=== PATIENT | male | born 1945 | race Caucasian/White ===

== ENCOUNTER 2024-06-07 07:52 | Emergency (ER) | payer MEDICARE, MEDICAID ==
[~2024-06-07] VITALS: Ht 172.7 cm; Wt 82.0 kg
[2024-06-07 07:54] VITALS: O2SAT 98
[2024-06-07 08:29] LABS: BASOPHILS % 0.7 % (0.0-2.0); DIFFERENTIAL COMMENT 0; EOSINOPHILS % 0.5 % (0.0-5.0); HEMATOCRIT. 30.5 % (42.0-52.0); HEMOGLOBIN. 9.8 g/dL (14.0-18.0); LYMPHOCYTES % 13.2 % (20.0-50.0); MEAN CORPUSCULAR HEMOGLOBIN 23.4 pg (28.0-32.0); MEAN CORPUSCULAR HGB CONC 32.1 g/dL (31.0-37.0); MEAN CORPUSCULAR VOLUME 72.9 fL (80.0-94.0); MEAN PLATELET VOLUME 9.1 fl (7.4-10.4); MONOCYTES % 4.5 % (2.0-8.0); NEUTROPHILS % 81.1 % (40.0-76.0); PLATELET 266 x1000/uL (130-400); RED BLOOD CELL COUNT 4.18 mill/uL (4.7-6.1); WHITE BLOOD COUNT 7.4 x1000/uL (4.5-11.0)
[2024-06-07 08:33] LABS: CHLORIDE 109 mEq/L (98-107); POTASSIUM 5.1 mEq/L (3.5-5.1); SODIUM 142 mEq/L (136-145)
[2024-06-07 08:34] LABS: CARBON DIOXIDE 22 mEq/L (21-32)
[2024-06-07 08:35] LABS: CALCIUM 9.6 mg/dL (8.7-10.4)
[2024-06-07 08:39] LABS: GLUCOSE 50 mg/dL (70-105); UREA NITROGEN BLOOD 29 mg/dL (9-23)
[2024-06-07 08:49] LABS: PROTHROMBIN TIME 11.4 sec (9.6-11.0)
[2024-06-07] MEDS: DEXTROSE 50% WATER 50ML SYRINGE IV ONE (08:50)
[2024-06-07 09:44] LABS: CLARITY URINE CLEAR (CLEAR); COLOR URINE YELLOW (YELLOW); GLUCOSE URINE 2+ (NEGATIVE); KETONES URINE NEGATIVE (NEGATIVE); LEUKOCYTE ESTERASE URINE NEGATIVE (NEGATIVE); NITRITE URINE NEGATIVE (NEGATIVE); OCCULT BLOOD URINE NEGATIVE (NEGATIVE); PH URINE 5.5 (4.5-8.0); PROTEIN URINE 1+ (NEGATIVE); SPECIFIC GRAVITY URINE 1.011 (1.005-1.030); UROBILINOGEN URINE 0.2 E.U./dL (0.2-1.0)
[2024-06-07 09:55] LABS: BACTERIA URINE NONE SEEN; RBC URINE 0-2 /hpf (0-2); SQUAMOUS EPITHELIAL CELL URINE NONE SEEN /lpf (RARE/1+); WBC URINE 0-2 /hpf (0-2)
[2024-06-07 09:56] LABS: YEAST URINE NONE SEEN
[2024-06-07 10:30] VITALS: BP 150/59; PULSE 82; RESP 14; TEMP 36.89184; O2SAT 99
== END 2024-06-07 10:50 | disposition home or self-care (01) ==
LOC: ER 08:06
DX: E11.649 Type 2 diabetes mellitus with hypoglycemia without coma (principal); E78.00 Pure hypercholesterolemia, unspecified; I10 Essential (primary) hypertension
CPT/HCPCS: 36415; 80048; 81003; 85025; 96374; 99283